=== PATIENT | female | born 1975 | race Caucasian/White ===

== ENCOUNTER 2016-12-02 10:32 | Day surgery (SDC) | payer OTHER ==
[2016-12-02] VITALS (11 sets, daily range): BP systolic 118–135; BP diastolic 62–84; PULSE 68–99; RESP 13–18; O2SAT 96–99
[~2016-12-02] VITALS: Ht 172.7 cm; Wt 69.1 kg
[2016-12-02] MEDS: Lactated Ringer's 1,000 ML IV SCH ×5 (05:00→23:17)
[~2016-12-02 10:32] MED LIST: CeFAZolin Inj 1 GM in IV Premix 1 EACH IV ONE; FLUT16SP NS; LORA10CA9 PO; Phenazopyridine 97.5 mg Tablet PO ONE
[2016-12-02] MEDS ORDERED: Propofol 10,000 mCg/mL 20 mL Inj ONE (10:33)
[2016-12-02] MEDS ORDERED: Dexamethasone 4 mg/mL Inj ONE (10:33)
[2016-12-02] MEDS ORDERED: fentaNYL-PF 50 mCg/mL 2 mL Inj ONE (10:33)
[2016-12-02] MEDS ORDERED: Rocuronium 10 mg/mL 5 mL Inj ONE (10:33)
[2016-12-02] MEDS ORDERED: EPHEDrine/NS 5 mg/mL 5 mL Syringe ONE (10:33)
[2016-12-02] MEDS ORDERED: Morphine PF 1 mg/mL 10 mL Inj ONE (10:33)
[2016-12-02] MEDS ORDERED: HYDROmorphone 1 mg/mL Inj ONE (10:33)
[2016-12-02] MEDS ORDERED: Ondansetron 2 mg/mL 2 mL Inj ONE (10:33)
[2016-12-02] MEDS ORDERED: Phenazopyridine 97.5 mg Tablet ONE (10:53)
[2016-12-02] MEDS ORDERED: CeFAZolin Inj 2 gm / 50mL D5W IV ONE (11:21)
[2016-12-02] MEDS ORDERED: Lidocaine 1%-Epi 1:100,000 20 mL Inj INJ ONE (11:37)
[2016-12-02] MEDS ORDERED: 0.9% Sodium Chloride 10 mL Inj IV ONE (11:38)
[2016-12-02] MEDS ORDERED: Lactated Ringer's 500 ML IV PRN (12:08)
[2016-12-02] MEDS ORDERED: Lactated Ringer's 1,000 ML IV SCH (12:08)
--- NOTE | 2016-12-02 12:08 | PCM.HPANE ---
Patient Data Surgeon Admitting Provider: Attending Provider:Lino De La Paz MD Primary Care Physician:Other,Physician Other Provider:Ritu Roman Anesthesia Reason for Visit Uterovag Prolapse,Stress Incontinence,Cystocele Ht/WT & BMI Height (Feet): 5 Height (Inches): 9 Weight (Kilograms): 64.8 Body Mass Index 21.00 Allergies Coded Allergies: ibuprofen (Verified Allergy, Unknown, rash-hives, 11/27/16) Past Anesthesia History Anesthesia History: Denies:: Anesthesia Reactions, Fam Anesthesia Reaction Diabetes History Hx Diabetes?: No MRSA MRSA: No Medications Hypertension Medication: No Home Meds Incl Beta Ben: No Reported Medications Fluticasone Propionate (Fluticasone Propionate Nasal)16 Gm [place].susp1 [place] NS BID #16 GM Ref 0 11/27/16 Loratadine 10 Mg [id number] Mg PO HS 11/27/16 History History of ENT Problems?: No HEENT History: Positive for:: Cataracts (left eye with ptosis repair as well) TMJ (grinds, no nightguard) Denies:: Hearing Problem Denture Type: None Teeth Condition: Within Normal Limits Hx of Heart Problems?: No Cardiovascular History: Positive for:: Irregular Heartbeat (freq PVC- holter done in past, neg workup, baseline HR hi 40s) Denies:: AICD Abdominal Aortic Aneurism Atrial Fibrillation Cardiac Surgery Chest Pain Congestive Heart Failure Coronary Artery Disease Edema Heart Murmur Hypertension Pacemaker Peripheral Vascular Other History/Comments Quite active. No CP; No hx CA Hx of Respiratory Problem?: No Respiratory History: Denies:: Asthma COPD Emphysema Oxygen Administration Pneumonia Tuberculosis Use of C-PAP Machine Use of Inhalers / NEBS Hx Neurologic Problems?: No Neurological History: Denies:: CVA Headaches Multiple Sclerosis Parkinson's Disease Seizures Hx of GI Problems?: No Hx of Problems?: Yes Genitourinary History: Denies:: Kidney Stones Urinary Tract Infection Female Hx: Denies:: Currently (hx of endometrial ablation) Problems with Breasts? Skin History: Denies:: History Skin Disorders? Pressure Ulcers Hx Musculoskeletal Problems?: No Musculoskeletal History: Denies:: Back Injury Degenerative Joint Fibromyalgia Joint Replacement Musculoskeletal Trauma Myasthenia Gravis Osteoarthritis Rheumatoid Arthritis Hx of Psycho/Social Problems?: No Psycho Social History: Denies:: Anxiety Hx Depression Hx Surgeries?: Yes (left knee scope, cataract left ptosis, endometrial ablation ) Hx Any Other Health Problems?: Yes Other History: Denies:: Cancer Thyroid Disease History Blood Transfusions: Positive for:: Accept Blood Products? Denies:: Blood Transfusions Hx Diabetes: No Hx Alcohol Use: YesAlcoholic Drinks Per Day: 4 drinks monthHx Substance Use: NoHave You Smoked inLast 12 mo: No Stop/Bang P-Blood Pressure: treated: No B- Body Mass Index > 35 kg/m2: No A- Age over 50: No N- Neck Large Circumference: No G- Gender Male: No Risk Assessment Category Category 1A: Patient has history of documented sleep apnea, and HAS NOT received any narcotic, sedative or anesthesia administration during this stay. Category 1B: Patient has history of documented sleep apnea, and HAS received any narcotic , sedative or anesthesia administration during this stay Category 2: Patient has SUSPECTED Obstructive Sleep Apnea, and HAS received any narcotic , sedative or anesthesia administration during this stay. Category 3: Patient has SUSPECTED Obstructive Sleep Apnea and HAS NOT received narcotic, sedative or anesthesia administration during this stay. Category 4: Outpatient in Procedural Areas with known sleep apnea or who screen positive for High Risk via the STOP/BANG questionnaire. Exam Exam General Appearance: Alert, Oriented X3 HEENT/AIRWAY: MP 2, Neck Movement (FROM) Lungs: Clear to Auscultation, Clear to Percussion Heart: Exam Unremarkable, Regular Rate/Rhythm Plan Impression Patient chart reviewed, patient interviewed and anesthestic plan with risks, benefits, and alternatives discussed, and informed consent obtained. ASA Physical Status: ASA2 Mod Systemic Disease Anesthetic Plan: GA, SAB Bene/Risks/Altern/Consents: Yes HP Complete Prior to Induction: Yes Other Surgeon requests I offer intrathecal morphine injection pre-op for post-op pain control. After hearing r/b/a of intrathecal opiate injection the patient consents to intrathecal opiate injection Cody Neves MD Dec 02, 2016 10:50
[2016-12-02] MEDS ORDERED: EPHEDrine Sulfate 50 mg/mL Inj IVPUSH PRN (12:10)
[2016-12-02] MEDS ORDERED: MetoCLOpramide 5 mg/mL 2 mL Inj IVPUSH PRN ×2 (12:10→16:15)
[2016-12-02] MEDS ORDERED: Labetalol 5 mg/mL 4 mL Inj IV PRN (12:10)
[2016-12-02] MEDS ORDERED: Atropine 0.4 mg/mL Inj IVPUSH PRN (12:10)
[2016-12-02] MEDS ORDERED: Phenylephrine 10,000 mCg/mL Inj IVPUSH PRN (12:10)
[2016-12-02] MEDS ORDERED: Ondansetron 2 mg/mL 2 mL Inj IVPUSH PRN (12:10)
[2016-12-02] MEDS ORDERED: HYDROmorphone 1 mg/mL Inj IVPUSH PRN (12:10)
[2016-12-02] MEDS ORDERED: Gentamicin 40 mg/mL 2 mL Inj IRRIGATION ONE (12:24)
[2016-12-02] MEDS ORDERED: Sodium Chloride Bacteriostatic 30 mL Inj INJ ONE (13:32)
[2016-12-02] MEDS ORDERED: Lidocaine 1%-Epi 1:100,000 20 mL Inj INFILTRATE ONE (13:32)
[2016-12-02] MEDS ORDERED: diphenhydrAMINE 25 mg Capsule PO PRN (16:15)
[2016-12-02] MEDS ORDERED: Alum-Mag Hydrox-Simeth 30 mL Suspension PO PRN (16:15)
--- NOTE | 2016-12-02 16:33 | PCM.ANEP1 ---
Post Anesthesia PACU Phase 1 Assessment Vital Signs Vital Signs Date Time Temp Pulse Resp B/P Pulse Ox O2 Delivery O2 Flow Rate FiO2 12/02/16 11:12 36.9 68 16 125/81 96 Room Air Anesthetic Administered: GA, SAB Level of Alertness: Awake, talking TURNER's with Equal Strength: Yes Pain: No Nausea or Vomiting: No CV Function & Hydration Stable: Yes Airway Device: Endotrachial Tube Oxygen Delivery: Simple Mask Lungs: Clear to Auscultation, Clear to Percussion PACU Phase 2 Assessment Complications: No Follow up Care: No Patient Instructions Provided: N/A Comments See anesth record for PACU VS. PACU VSS Cody Neves MD Dec 02, 2016 16:33
--- NOTE | 2016-12-02 16:36 | DRSVH ---
PROCEDURE: X-RAY PELVIS, ONE OR TWO VIEWS ([id number]) INDICATIONS: INCORRECT COUNT TECHNIQUE: Single view(s) of the pelvis acquired. COMPARISON: None. FINDINGS: Bones: No fractures or dislocations. No suspicious bony lesions. Soft tissues: The radiopaque filament from a surgical sponge is projected over the symphysis pubis. IMPRESSION: Radiopaque filament from a surgical sponge. This likely represents vaginal packing. No ot her unexpected radiopaque foreign bodies visualized. This finding was discussed with Dr. De La Paz at 4:33 PM on 12/02/16. Dictated by: Alison Mata M.D. on 12/02/2016 at 16:30 Approved by: Alison Mata M.D. on 12/02/2016 at 16:33
[2016-12-02] MEDS: fentaNYL-PF 50 mCg/mL 2 mL Inj IVPUSH PRN ×2 (17:05→17:20)
[2016-12-02] MEDS ORDERED: Acetaminophen IV 1,000 MG in IV Premix 1 EACH IV ONE (18:30)
--- NOTE | 2016-12-02 18:35 | NUR ---
Arrival to 1001 Pt transferred to her room independently in 1001 at 1740 and tolerated well. 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 Denies nausea. Guerra patent and draining orange urine to gravity. Belongings at bedside, pt assisted with contact for R eye d/t blurry vision from one fixed cataract. No family support here.
[2016-12-02] MEDS: oxyCODONE-Acetamin 5-325 mg Tablet PO PRN ×2 (18:43→22:38)
--- NOTE | 2016-12-02 22:45 | PCM.SURGOP ---
Surgical Operative Report Date of Service: Dec 02, 2016 Pre Operative Diagnosis 1. POPQ Stage 2 Anterior, Posterior and Apical Uterovaginal prolapse, incomplete N81.2 (618.2): 2. Female stress incontinence N39.3 (625.6): Urodynamics revealed urodynamic stress incontinence. Post Operative Diagnosis 1. POPQ Stage 2 Uterine prolapse, Cystocele, Rectocele and Enterocele 2. Deficient pubovesical/pubocervical fascia 3. Urodynamic stress incontinence. Procedure: 1. vaginal hysterectomy with bilateral salpingectomy, 2. anterior repair with Xenform biologic graft augmentation, 3. posterior repair 4. high uterosacral ligament vaginal vault suspension, cystoscopy and enterocele repair 5. TVT-obturator sling and cystoscopy Surgeon and Radiochemical Technician: Surgeon: Lino De La Paz MD Assistants: Logan Gil MD Indication for Procedure Her assessment to date includes: 1. Uterovaginal prolapse, incomplete N81.2 (618.2): 2. Cystocele, midline N81.11 (618.01): 3. Rectocele N81.6 (618.04): 4. Female stress incontinence N39.3 (625.6): Urodynamics revealed urodynamic stress incontinence. She is interested in surgical management. Her symptoms are bothersome and affect her [id number]. The patient is a candidate for surgical management in the form of a vaginal hysterectomy with bilateral salpingectomy, anterior repair and posterior repair with possible biologic graft augmentation, high uterosacral ligament vaginal vault suspension, enterocele repair and TVT-obturator sling. The patient signed the consent form. She agreed with the risks, benefits, and alternatives to surgery. The risks included but not limited to recurrence or persistence of prolapse, recurrence of persistence of incontinence, development of voiding dysfunction, development of urinary urgency, urgency incontinence, frequency, and need for intermittent self-catheterization or prolonged indwelling catheterization, injury to other organs including bladder, bowel, nerves or blood vessels. Need for blood transfusion, need for temporary colostomy or urinary stenting. Development of vaginal scarring, dyspareunia, defecatory dysfunction, recurring pain, hematoma formation, urinary tract infection, cellulitis, necrotizing fascitis, and medical risks including myocardial infarction, stroke or VTE. She also understood the FDA warnings associated with the use of vaginal mesh (dysparunia, vaginal erosion, erosion into bowel/bladder/urethra, requiring further surgery to correct these complications). The patient understood the risks and benefits and consented to surgery. Findings: see dictation Procedure Details SURGICAL TECHNIQUE: The patient was brought to the operating room. She was placed under general anesthesia. She was prepped and draped in the normal fashion for vaginal surgery. She was given a dose of IV ancef 2g intraoperatively. 1. Vaginal Hysterectomy and bilateral salpingectomy: Lidocaine 0.5% with 1:200,000 of epinephrine was infiltrated pericervically. A pericervical incision was made with a scalpel. Anteriorly, the bladder was sharply dissected off the cervix. Posteriorly, the cul de sac was entered with Sharp dissection. The bowels were packed with a mini-laparotomy sponge. The uterosacral ligaments were bilaterally clamped, divided and then tied in a transfixion fashion with 0- vicryl suture. Anteriorly, the Uterovesical peritoneum was entered with sharp dissection and the bladder was retracted upward with a right-angle retractor. The uterine vessels were then coagulated, and ligated using the Ligasure Impact System. The uterine body was delivered posteriorly. The utero-ovarian ligaments were clamped bilaterally, coagulated, ligatated and then tied using 0-Vicryl suture. The ovaries and tubes appeared normal. We proceeded with bilateral salpingectomy. The tubes were clamped at their base and cauterized then excised with Ligasure Impact. The base was tied with 0-vicryl suture. The uterus/cervix, and tubes were sent to pathology. It was noted that the pedicles and cuff were hemostatic. 2. High uterosacral ligament vaginal vault suspension, cystoscopy and enterocele repair: Mini laparotomy sponges were packed to retract the bowel upwards. A pair of Allis clamps were placed along the intraperitoneal portions of the vagina at the 5 and 7 o'clock positions. Tension along these Allis clamps allowed for identification of the uterosacral ligaments bilaterally. A pair of 0 Vicryl sutures were passed around the uterosacral ligaments of the level of the ischial spine bilaterally, totalling 4. Cystoscopy was performed. Tension was applied along the vault sutures and spillage of pyridium-stained urine was noted briskly effluxing from both ureteric orifices. Next, two 3-0 Prolene sutures were placed transversely through the cul-de-sac peritoneum. This was performed while using a gloved finger in the rectum as to avoid penetrating the underlying rectal mucosa. Tying these sutures obliterated the enterocele. 3. Anterior colporrhaphy with Xenform graft augmentation: Lidocaine 0.5% with 1 /070021 epinephrine was infiltrated along the anterior vaginal wall mucosa. A midline vertical incision was made through the anterior vaginal wall. The vaginal wall was dissected off the underlying pubocervical and pubovesical fascia. The dissection was extended laterally beyond the ischial pubic rami. It was noted that the pubocervical and pubovesical fascial tissues were deficient and thin. The cystocele was plicated in 2 layers, the first layer with 2-0 Vicryl suture in interrupted fashion, the second layer with 2-0 Tycron suture in an interrupted fashion. A trapezoidal piece of Xenform graft was then incorporated atop the plicated area far laterally. The graft was secured to the obturator internus membrane. At the level of the bladder neck, an upside down triangular piece of graft was excised so that there was no over-support created along the level of the bladder neck. Apically , the graft was passed through the proximal uterosacral ligament sutures. A mild amount of excess anterior vaginal mucosa was excised. The vault suspension sutures were then passed through the planned apex of the vagina. Two were placed through the anterior apex and the other two, through the posterior apex. The vagina was then reapproximated using 3-0 Vicryl suture in a running-locked fashion. The high uterosacral ligament vaginal vault suspension sutures were tied and this elevated the apex of the vagina high up into the hollow of the sacrum. 4. Posterior colpoperineorrhaphy: Lidocaine 0.5% with 1:200,000 of epinephrine was infiltrated along the perineum and posterior vaginal wall mucosa. A thin wedge of perineum was excised with a scalpel and a midline vertical incision was made through the posterior vaginal wall. The vaginal mucosa was dissected off the underlying rectovaginal tissues. It was noted the fascial tissues were sufficient. The rectocele was plicated, first in a site-specific defect fashion, then in one midline layer using 2-0 Vicryl suture in an interrupted fashion. A mild amount of excess posterior vaginal mucosa was excised. The vagina was reapproximated with 3-0 vicryl suture in a running-locked fashion. The perineum was reapproximated using 2-0 Vicryl suture in an interrupted fashion. The skin was reapproximated using 3- 0 Vicryl suture in a subcuticular fashion. 5. TVT-Obturator sling and cystoscopy. Lidocaine 0.5% with 1/860084 epinephrine was infiltrated along the anterior vaginal wall mucosa at the level of the mid urethra. Midline vertical incision was made at that level, 2 periurethral tunnels were created with Metzenbaum scissors. Two stab incisions were created at the skin at the groin at a level 2 cm superior to the external urethral meatus and 2 cm lateral to the fold created between the vulva and thigh. Little catheter had already been inserted. A butterfly guide was inserted into the right periurethral tunnel, a curved helical needle was inserted on top of the guide and rotated out to the ipsilateral skin incision. The same procedure was performed on the contralateral side. Next the Little catheter was removed. Cystoscopy was performed. There was no inadvertent penetration of the sling through the vagina, urethra or bladder. In addition, the ureteric orifices were noted bilaterally to be functional by the brisk spillage of pyridium-stained urine. The bladder appeared normal. The plastic sheaths of the sling were removed. The bladder was filled with 300 mL of sterile water. Using the Crede maneuver, sling tension was appropriately adjusted. Also a thick right angle clamp was allowed to easily pass behind the sling so that the sling was placed in a tension-free manner. The sling ends were cut at the level of the skin. The skin was reapproximated using Mastisol, Steri-Strips and band-aids. The vagina was reapproximated using 3-0 Vicryl suture in a running fashion The vagina was packed with Premarin-lubricated packing. An indwelling little catheter was connected to straight drainage. The patient's hips were periodically deflexed during the case. There were no complications. The EBL was 250 ml. All sponges were accounted for. However, due to a needle count discrepancy, a plain film was done which did not reveal any needles in the area of the pelvis. She was taken to the recovery room in stable condition. Complications There were no periprocedural complications identified. Surgical Specimen Removed: Yes Specimen sent to Pathology: Yes Surgical Specimen description: uterus, cervix, tubes x 2 Anesthetic Plan: GA, SAB Grafts, Implants: Grafts-See Implant Record, Implants-See Implant Record Output, Estimated Blood Loss: 250 (ml EBL) Blood Administration during zapata: No Drains: None Catheters: Urethral 2 Way Little Post Operative Plan overnight observational stay in bed as she requires a voiding trial in the am copies to: Logan Gil MD; Carmen Lopez MD; Lino De La Paz MD, William Andre Z MD Dec 02, 2016 22:45
[2016-12-03 00:01] VITALS: BP 107/62; PULSE 57; RESP 15; O2SAT 98
[2016-12-03] MEDS: oxyCODONE-Acetamin 5-325 mg Tablet PO PRN ×5 (02:08→20:04)
--- NOTE | 2016-12-03 03:51 | NUR ---
Pain/ Activity Pt appears hesitant to take any sort of narcotics for pain management. Agreeable to taking Percocet one tab PO for breakthrough pain throughout shift, after one time dose of IV Tylenol was completed at beginning of shift. One Percocet mostly effective for pain management for most of shift so far. Pain decreased from 6 to 4/10, which patient states is tolerable. Later on in shift, patient noted to be tearful and requesting second Percocet tab for first time tonight. Complaining of "gas like" discomfort in abdomen, as well as surgical pain. Trying to encourage patient to become more active/mobile as she has been in bed all shift. Agreeable to standing at EOB, but had to sit down almost immediately d/t "discomfort". Patient educated on ambulation positively affecting gas discomfort. Refusing to walk at this point in time. Patient aware she has Morphine IVP ordered for severe pain, but refusing offers at this time.
[2016-12-03 05:31] LABS: BASOPHILS % (AUTO) 0.1 % (0-3); EOSINOPHILS % (AUTO) 0 % (0-5); MONOCYTES % (AUTO) 10.4 % (4-12); Mean Corpuscular Hemoglobin 30.8 pg (27.0-35.0); NEUTROPHILS % (AUTO) 78.7 % (40-74); Platelet Count 200 bil/L (150-400)
[2016-12-03 06:26] VITALS: BP 92/57; PULSE 53; RESP 15; O2SAT 100
[2016-12-03] MEDS: Ondansetron 2 mg/mL 2 mL Inj IVPUSH PRN ×2 (06:34→11:43)
[2016-12-03] MEDS: Lactated Ringer's 1,000 ML IV SCH ×2 (08:08→16:15)
[2016-12-03] MEDS: Fluticasone 0.05% 15 Spray/2 Gm 16 Gm Nasal Spray NASAL SCH ×2 (08:30→20:30)
[2016-12-03] MEDS: Heparin 5,000 Unit/mL Inj SUBQ SCH ×2 (08:49→16:57)
[2016-12-03] MEDS: Senna-Docusate 8.6-50 mg Tablet PO SCH ×2 (08:49→20:31)
[2016-12-03 09:21] VITALS: BP 102/62; PULSE 60; RESP 16; O2SAT 99
--- NOTE | 2016-12-03 10:27 | NUR ---
Activity Patient attempted to stand at edge of bed with RN. Reported discomfort when sitting but denied nausea at this time-stated that she is unable to sit for very long because of the pressure/discomfort. Once standing at side of bed, became dizzy and stated she felt "kind of pass out-y". Assisted patient back to bed. Holding off on voiding trial until patient is able to tolerate sitting. Will try again. Addendum: 12/03/16 at 1706 by RASHAD BEY RN Have gotten patient out of bed multiple times today, even ambulated to the bathroom. Each attempt, patient became dizzy, diaphoretic, and stated that she felt like she was going to pass out. Patient did attempt to sit on BSC and toilet to pass gas, did state she was attempting to push but felt as though she was going to vagal. Continuing to rate pain 7-9/10-cramping/gas pain/burning in pedro area. Denies nausea at this time. Continuing to encourage movement and ambulation as much as tolerated. Dr. De La Paz aware and has been in contact. Addendum: 12/03/16 at 1835 by RASHAD BEY RN Patient able to tolerate being up for a shower. Able to ambulate back to bed SBA. Reports vaginal and rectal pain, but denies gas pains and nausea. Patient does state she feels groggy and would like to nap-quiet environment with lights off so patient is able to rest.
--- NOTE | 2016-12-03 10:50 | NUR ---
Social Work- Multi-Disciplinary Rounds No social work needs identified in rounds with mechanical equipment test engineer. Pt will discharge today after voiding trial. ROBBIE Thompson
--- NOTE | 2016-12-03 12:29 | PCM.DIGYN ---
Surgical Discharge Instruction Dates of Hospitalization Date of Hospital Admission 12/02/16 outpatient Providers Admitting Physician: Primary Care Physician: Other,Physician Attending Physician: Lino De La Paz MD Diagnosis at Time of Discharge Diagnosis at time of discharge 1. POPQ Stage 2 Uterine prolapse, Cystocele, Rectocele and Enterocele 2. Deficient pubovesical/pubocervical fascia 3. Urodynamic stress incontinence. Post-operative diagnosis 1. POPQ Stage 2 Uterine prolapse, Cystocele, Rectocele and Enterocele 2. Deficient pubovesical/pubocervical fascia 3. Urodynamic stress incontinence. Problems: Diet Discharge Diet: No restrictions Activity Discharge Activity-General: Restrict lifting to no greater than (10 lbs for 6wk ) Dressing and Incisional Care Dressing Care: Allow Steri Stripes to fall off Hygiene: May shower Follow Up Plan Follow-up appointment: Weeks (2; also f/u in [address] De La Paz's MA if home with a little) Call your provider for: Fever, Chills, Shortness of breath, Vomitting, Drainage at incision, Heavy vaginal bleeding, Wound redness, Increasing pain Lino De La Paz MD Dec 03, 2016 12:29
[2016-12-03] MEDS ORDERED: Dexamethasone 10 mg/mL Inj IV ONE (13:50)
[2016-12-03] MEDS: hydrOXYzine Pamoate 25 mg Capsule PO PRN ×2 (14:20→23:08)
[2016-12-03 14:21] VITALS: BP 113/69; PULSE 63; RESP 16; O2SAT 99
[2016-12-03 17:39] VITALS: BP 124/74; PULSE 68; RESP 16; O2SAT 99
[2016-12-03 19:30] VITALS: BP 119/80; PULSE 65; RESP 16; O2SAT 98
--- NOTE | 2016-12-03 22:34 | PCM.PNSURG ---
Subjective Date of Service: Dec 03, 2016 Date of Service: Dec 03, 2016 Visit Information: Reason for Visit Uterovag Prolapse,Stress Incontinence,Cystocele Surgery/Surgery Date Post-Op Day # 1 Subjective: Late entry (pt seen at [address] De La Paz on 12/03/16) Pt c/o nausea and abdominal gas pains, worse when trying to ambulate on oral percocet, and IV morphine previously, not helpful for pain control tried ondansetron and metoclopramide, not helpful for nausea OR explained Hct stable 32 Objective Vital Sign- Last 8 Hours Date Time Temp Pulse Resp B/P Pulse Ox O2 Delivery O2 Flow Rate FiO2 12/03/16 19:30 36.8 65 16 119/80 98 Room Air 12/03/16 17:39 36.9 68 16 124/74 99 Room Air Intake and Output- Last 8 Hour 12/03/16 Cumulative From/Thru 07:00 11/27/16 09:19 - 12/03/16 06:24 Intake Total 2727 ml 4377 ml Output Total 1200 ml 2000 ml Balance 1527 ml 2377 ml Intake Oral 2062 ml 2162 ml IV Total 665 ml 2215 ml Output Urine Total 1200 ml 1500 ml Estimated Blood Loss 500 ml # Bowel Movements 0 0 General: Alert Lungs: Clear to Auscultation Abdomen: Soft Catheters: Urethral 2 Way Guerra Result Diagram: 12/03/16 0442 12/02/16 1111 Assessment & Plan Impression 1. pain control and nausea control not optimal Problems: Plan Add vistaril, and switch to tramadol. Hold morphine and percocet as she may be opiod-intolerant due to nausea. Use tylenol po. She gets hives with ibuprofen , so only use if necessary. Give 1 dose of IV dexamethasone for nausea. encourage po intake and ambulation. She may need an extra day of hospital stay if her nausea/pain are not well controlled. Will check with discharge co-ordinator regarding insurance matters. repeat CBC, CMP later today copies to: Lino De La Paz MD, William Andre Z MD Dec 03, 2016 22:34
[2016-12-03 23:04] LABS: BASOPHILS % (AUTO) 0 % (0-3); EOSINOPHILS % (AUTO) 0 % (0-5); MONOCYTES % (AUTO) 4.2 % (4-12); Mean Corpuscular Hemoglobin 30.5 pg (27.0-35.0); Mean Corpuscular Volume 88.9 fL (81-100); NEUTROPHILS % (AUTO) 91.1 % (40-74); Platelet Count 175 bil/L (150-400)
[2016-12-04] MEDS: Lactated Ringer's 1,000 ML IV SCH ×2 (00:15→08:15)
[2016-12-04] MEDS: Heparin 5,000 Unit/mL Inj SUBQ SCH ×2 (00:31→10:04)
--- NOTE | 2016-12-04 02:53 | NUR ---
Activity: Pt has been OOB x 3 this shift to ambulate in room. Tolerates good with no c/o N/V, SOB, CP, or dizziness. VSS. Continues to have gas pain and cramping. Flatus present after admin of first Mylicon at start of shift. Plans to d/c FC this a.m. and attempt void trial.
[2016-12-04 04:41] VITALS: BP 118/68; PULSE 69; RESP 15; O2SAT 96
[2016-12-04 06:38] LABS: BASOPHILS % (AUTO) 0 % (0-3); EOSINOPHILS % (AUTO) 0 % (0-5); Mean Corpuscular Hemoglobin 30.9 pg (27.0-35.0); Mean Corpuscular Volume 90.7 fL (81-100); NEUTROPHILS % (AUTO) 74.1 % (40-74); Platelet Count 169 bil/L (150-400)
[2016-12-04] MEDS: Senna-Docusate 8.6-50 mg Tablet PO SCH (08:30)
[2016-12-04] MEDS: Fluticasone 0.05% 15 Spray/2 Gm 16 Gm Nasal Spray NASAL SCH (08:30)
[2016-12-04 09:55] VITALS: BP 116/73; PULSE 71; RESP 16; O2SAT 98
--- NOTE | 2016-12-04 10:26 | NUR ---
Voiding Trial Started voiding trial per MD order in paper chart at 1020. Talked with patient about the time limit and what would happen if she were able to void at least 200mLs and if she was not able to. Instilled 300mLs of NS into patient's bladder, removed Guerra catheter, and patient stated she felt she needed to urinate and went into bathroom. Hat in toilet to measure urine. Will check at 1050 to measure urine output and continue per MD order. Addendum: 12/04/16 at 1132 by RASHAD BEY RN After allotted 30 minutes, patient was unable to void independently. 16F Catheter placed and patient educated on plugging and connecting catheter to drainage bag. Dr. De La Paz updated on patient status.
--- NOTE | 2016-12-04 11:40 | PCM.PNSURG ---
Subjective Date of Service: Dec 04, 2016 Date of Service: Dec 04, 2016 Visit Information: Reason for Visit Uterovag Prolapse,Stress Incontinence,Cystocele Surgery/Surgery Date Post-Op Day # 2 Subjective: AVSS nausea and pain management improved on tramadol ambulatory eating well hct stable 32 failed voiding trial Gastrointestinal: Tolerating Oral Feedings Pain Management: PO Postop Activity: Ambulating Independently Objective Vital Sign- Last 8 Hours Date Time Temp Pulse Resp B/P Pulse Ox O2 Delivery O2 Flow Rate FiO2 12/04/16 09:55 36.8 71 16 116/73 98 Room Air 12/04/16 04:41 37.2 69 15 118/68 96 Room Air Intake and Output- Last 8 Hour 12/04/16 Cumulative From/Thru 06:59 11/27/16 09:19 - 12/04/16 04:40 Intake Total 1895 ml 6672 ml Output Total 2250 ml 4750 ml Balance -355 ml 1922 ml Intake Oral 1895 ml 4457 ml IV Total 2215 ml Output Urine Total 2250 ml 4250 ml Estimated Blood Loss 500 ml # Bowel Movements 0 0 General: Alert, Oriented X3, Cooperative Lungs: Clear to Auscultation Abdomen: Benign Catheters: Urethral 2 Way Guerra Result Diagram: 12/04/16 0605 12/04/16 0605 Assessment & Plan Impression stable for discharge Problems: Plan 1. d/c home today 2. f/u in [address] De La Paz; f/u in 1 wk for a nurse visit (madhavi trial). copies to: Lino De La Paz MD, William Andre Z MD Dec 04, 2016 11:40
--- NOTE | 2016-12-04 11:44 | PCM.DC.SUR ---
Discharge Summary Date of Service: Dec 04, 2016 Date of Hospital Admission: Dec 02, 2016 (outpatient) Date of Operation(s): 12/02/16 Date of Discharge: 12/04/16 Diagnosis at Time of Discharge 1. POPQ Stage 2 Uterine prolapse, Cystocele, Rectocele and Enterocele 2. Deficient pubovesical/pubocervical fascia 3. Urodynamic stress incontinence. Problems: Operation On 12/02/16, the patient underwent the following Procedure: 1. vaginal hysterectomy with bilateral salpingectomy, 2. anterior repair with Xenform biologic graft augmentation, 3. posterior repair 4. high uterosacral ligament vaginal vault suspension, cystoscopy and enterocele repair 5. TVT-obturator sling and cystoscopy Brief History and Physical: Her assessment to date and pelvic examination includes: 1. Uterovaginal prolapse, incomplete N81.2 (618.2): 2. Cystocele, midline N81.11 (618.01): 3. Rectocele N81.6 (618.04): 4. Female stress incontinence N39.3 (625.6): Urodynamics revealed urodynamic stress incontinence. She is interested in surgical management. Her symptoms are bothersome and affect her [id number]. The patient is a candidate for surgical management in the form of a vaginal hysterectomy with bilateral salpingectomy, anterior repair and posterior repair with possible biologic graft augmentation, high uterosacral ligament vaginal vault suspension, enterocele repair and TVT-obturator sling. Consultants: Dr. Lino De La Paz Hospital Course: On POD#1 Subjective Date of Service: Dec 03, 2016 Date of Service: Dec 03, 2016 Visit Information: Reason for Visit Uterovag Prolapse,Stress Incontinence,Cystocele Surgery/Surgery Date Post-Op Day # 1 Subjective: Late entry (pt seen at [address] De La Paz on 12/03/16) Pt c/o nausea and abdominal gas pains, worse when trying to ambulate on oral percocet, and IV morphine previously, not helpful for pain control tried ondansetron and metoclopramide, not helpful for nausea OR explained Hct stable 32 Surgical Exam Objective Vital Sign- Last 8 Hours Date Time Temp Pulse Resp B/P Pulse Ox O2 Delivery O2 Flow Rate FiO2 12/03/16 19:30 36.8 65 16 119/80 98 Room Air 12/03/16 17:39 36.9 68 16 124/74 99 Room Air Intake and Output- Last 8 Hour 12/03/16 Cumulative From/Thru 07:00 11/27/16 09:19 - 12/03/16 06:24 Intake Total 2727 ml 4377 ml Output Total 1200 ml 2000 ml Balance 1527 ml 2377 ml Intake Oral 2062 ml 2162 ml IV Total 665 ml 2215 ml Output Urine Total 1200 ml 1500 ml Estimated Blood Loss 500 ml # Bowel Movements 0 0 General: Alert Lungs: Clear to Auscultation Abdomen: Soft Catheters: Urethral 2 Way Guerra Result Diagram: 12/03/16 0442 12/02/16 1111 [Image 1] Assessment & Plan Assessment & Plan Impression 1. pain control and nausea control not optimal Problems: Plan Add vistaril, and switch to tramadol. Hold morphine and percocet as she may be opiod-intolerant due to nausea. Use tylenol po. She gets hives with ibuprofen , so only use if necessary. Give 1 dose of IV dexamethasone for nausea. encourage po intake and ambulation. She may need an extra day of hospital stay if her nausea/pain are not well controlled. Will check with discharge co-ordinator regarding insurance matters. repeat CBC, CMP later today On POD#2 Subjective Date of Service: Dec 04, 2016 Date of Service: Dec 04, 2016 Visit Information: Reason for Visit Uterovag Prolapse,Stress Incontinence,Cystocele Surgery/Surgery Date Post-Op Day # 2 Subjective: AVSS nausea and pain management improved on tramadol ambulatory eating well hct stable 32 failed voiding trial Gastrointestinal: Tolerating Oral Feedings Pain Management: PO Postop Activity: Ambulating Independently Surgical Exam Objective Vital Sign- Last 8 Hours Date Time Temp Pulse Resp B/P Pulse Ox O2 Delivery O2 Flow Rate FiO2 12/04/16 09:55 36.8 71 16 116/73 98 Room Air 12/04/16 04:41 37.2 69 15 118/68 96 Room Air Intake and Output- Last 8 Hour 12/04/16 Cumulative From/Thru 06:59 11/27/16 09:19 - 12/04/16 04:40 Intake Total 1895 ml 6672 ml Output Total 2250 ml 4750 ml Balance -355 ml 1922 ml Intake Oral 1895 ml 4457 ml IV Total 2215 ml Output Urine Total 2250 ml 4250 ml Estimated Blood Loss 500 ml # Bowel Movements 0 0 General: Alert, Oriented X3, Cooperative Lungs: Clear to Auscultation Abdomen: Benign Catheters: Urethral [address] Way Guerra Result Diagram: 12/04/1660412/04/16604 [Image 1] Assessment & Plan Assessment & Plan Impression stable for discharge Problems: Plan 1. d/c home today 2. f/u in [address] De La Paz; f/u in 1 wk for a nurse visit (madhavi trial). Pathology: pending Disposition: stable for d/c to home Follow-up Plan: f/u in 1 and 2 wk Fluticasone Propionate (Fluticasone Propionate Nasal) 16 Gm [place].susp 1 SPRAY NS BID (Reported) Loratadine (Loratadine) 10 Mg Capsule 10 MG PO HS (Reported) copies to: Lino De La Paz MD, William Andre Z MD Dec 04, 2016 11:44
--- NOTE | 2016-12-04 14:00 | NUR ---
Discharge Patient discharged home with friend via private vehicle and requested to ambulate out due to discomfort sitting. Personal belongings went with patient. Discharge information was gone over with patient, educated about catheter care, went over follow up appointments, IV DC'd intact. Printed information about cath care, night bag and additional plug and leg sticker given to patient. Patient showed verbal understanding and demonstrated what to do.
--- NOTE | 2016-12-09 15:03 | PATH ---
SURGICAL PATHOLOGY Attending Physician:Lino De La Paz, CASE STATUS: Signed Out PATIENT NAME: AMBER ESPINOZA PID: [id number] : 1975 DATE COLLECTED:12/02/2016 00:00 SPECIMEN: 1: Uterus +/- tubes/ovaries, except neoplastic, prolapse 2: Fallopian Tube, Biopsy CLINICAL HISTORY: UTEROVAG PROLAPSE, STRESS INCONTINENCE, CYSTOCELE 1). UTERUS AND RIGHT FALLOPIAN TUBE 2). LEFT FALLOPIAN TUBE FINAL DIAGNOSIS: 1. Uterus and Right Fallopian Tube, Hysterectomy with Right Salpingectomy: Atrophic/inactive endometrium. Negative for hyperplasia and malignancy. Adenomyosis. Leiomyomata (0.3- 0.5 cm) Cervix, right fallopian tube, negative for neoplasm. 2. Left Fallopian Tube, Salpingectomy: Left fallopian tube, negative for neoplasm. ICD10: N39.3 GROSS DESCRIPTION: The specimens are received in formalin, labeled with the patient's name, and sublabeled as the following: (1) uterus & and right fallopian tube; (2) left fallopian tube. (1) the specimen consists of a uterus (83 g, 4.2 cm AP, 8.8 cm SI, 4.5 cm ML) and a detached fimbriated fallopian tube (length-3.6 cm, diameter-0.7 cm). The ovaries and second fallopian tube are absent. The cervix (2.5 cm AP, 3.5 cm ML) has a vaginal cuff (up to 1.2 cm in depth), transverse os and patent endocervical canal. The endometrium (average thickness 0.2 cm) is tan0- pink, focally bright light and flat. The myometrium (thickness-1.8 cm) is ho with a white lacy pattern and contains multiple solid firm white whorled well-circumscribed homogenous nodule 0.3 x 0.3 x 0.2 cm-0.5 x 0.5 x 0.4 cm). The serosa is pale smooth and shiny. Section code: (1A) anterior cervix; (1B) posterior cervix; (1C, 1D) anterior endomyometrium; (1E, 1F) posterior endomyometrium; (1G) fallopian tube, serially sectioned, sales representative printing paper; (1H) fimbria, bivalved, entirely submitted. Additional sections: (1I-1K) additional endomyometrium, sales representative printing paper. 12/04/16 Additional sections submitted: 1L-1P, sales representative printing paper endomyometrium. 12/08/[address] Anjel Burrell MD. (2) The specimen consists of a fimbriated fallopian tube (length-4.6 cm, diameter-0.4 cm). The serosa is ho-pink smooth and shiny. The lumen is ho and unremarkable. No nodules, masses or lesions are identified. Section code: (2A) fallopian tube, serially sectioned, sales representative printing paper; (2B) fimbria, bivalved, entirely submitted. 12/03/16 AMANUEL ICD-9 CODES: CPT CODES: 1: 82434 2: 77621 Electronically Signed Out Anjel Burrell MD [facility] Pathology [facility] [address] [place] [address] Division, [place] [address] Technical component performed at [facility], [address] [place] [address] Ave[address], [address]
== END 2016-12-04 13:59 | disposition home or self-care (01) ==
LOC: SAS 10:32 → OSC 17:50 → SAS 12-04 13:59
PROVIDERS: ATTEND Obstetrics & Gynecology
DX: N81.2 Incomplete uterovaginal prolapse (principal); N81.6 Rectocele; N39.3 Stress incontinence (female) (male); N30.30 Trigonitis without hematuria; E78.5 Hyperlipidemia, unspecified; D64.9 Anemia, unspecified
CPT/HCPCS: 36415; 57260; 57288; 58262; 72170; 80048; 80053; 85025; 86850; C1763; C1771; J0131; J0690; J1100; J1170; J1580; J1644; J2250; J2270; J2274; J2405; J2765; J3010; J7120; Q0177